=== PATIENT | female | born 1940 | race Caucasian/White ===

== ENCOUNTER 2016-10-23 08:49 | Outpatient (CLI) | payer MEDICARE, OTHER | END 2016-10-23 08:50 | disposition home or self-care (01) | DX: Z12.31 Encounter for screening mammogram for malignant neoplasm of breast (principal) ==

== ENCOUNTER 2016-10-23 15:38 | Outpatient (CLI) | payer MEDICARE, OTHER | END 2016-10-23 15:39 | disposition home or self-care (01) | DX: I10 Essential (primary) hypertension (principal); E78.5 Hyperlipidemia, unspecified ==

== ENCOUNTER 2017-09-17 09:19 | Outpatient (CLI) | payer MEDICARE, OTHER ==
[2017-09-17 17:41] LABS: BASOPHILS # (AUTO) 0.1 10^3/uL (0.0-0.1); BASOPHILS % (AUTO) 0.6 %; EOSINOPHILS # (AUTO) 0.4 10^3/uL (0.0-0.7); EOSINOPHILS % (AUTO) 4.1 %; HGB - HEMOGLOBIN 14.5 g/dL (12.0-16.0); LYMPHOCYTES # (AUTO) 2.3 10^3/uL (1.5-3.5); LYMPHOCYTES % (AUTO) 27.2 %; MEAN CORPUSCULAR HEMOGLOBIN 31.6 pg (27.0-31.0); MEAN CORPUSCULAR HGB CONC 32.7 g/dL (32.0-36.0); MEAN CORPUSCULAR VOLUME 96.4 fL (81.0-99.0); MEAN PLATELET VOLUME 9.1 fL (7.9-10.8); MONOCYTES # (AUTO) 0.9 10^3/uL (0.0-1.0); MONOCYTES % (AUTO) 9.9 %; NEUTROPHILS % (AUTO) 58.2 %; PLT - PLATELET COUNT 225 10^3/uL (130-450); RED BLOOD COUNT 4.61 10^6/uL (4.20-5.40); RED CELL DISTRIBUTION WIDTH 12.9 % (12.0-15.0); WHITE BLOOD COUNT 8.6 x10^3/uL (4.8-10.8)
[2017-09-17 18:25] LABS: ALBUMIN 4.4 g/dL (3.2-5.5); ALBUMIN/GLOBULIN RATIO 1.6 (1.0-2.2); BILIRUBIN,TOTAL 0.6 mg/dL (0.2-1.0); CALCIUM 9.4 mg/dL (8.5-10.3); CREATININE 0.9 mg/dL (0.4-1.0); TOTAL PROTEIN 7.1 g/dL (6.7-8.2)
== END 2017-09-17 09:20 | disposition home or self-care (01) ==
LOC: LAB.F 09:19
PROVIDERS: ATTEND Family Medicine
DX: R10.9 Unspecified abdominal pain (principal); N83.9 Noninflammatory disorder of ovary, fallopian tube and broad ligament, unspecified; Z86.32 Personal history of gestational diabetes; Z12.31 Encounter for screening mammogram for malignant neoplasm of breast; C43.9 Malignant melanoma of skin, unspecified
CPT/HCPCS: 36415; 80053; 85025; 86304

== ENCOUNTER 2017-09-23 11:31 | Outpatient (CLI) | payer MEDICARE, OTHER ==
[2017-09-23] MEDS ORDERED: IOPAMIDOL-300 100 ML VIAL ONE (11:43)
[2017-09-23] MEDS ORDERED: IOPAMIDOL-300 50 ML VIAL ONE (11:43)
[2017-09-23] MEDS ORDERED: IOPAMIDOL-300 50 ML VIAL PO ONE (12:57)
[2017-09-23] MEDS ORDERED: IOPAMIDOL-300 100 ML VIAL IVP ONE (12:57)
--- NOTE | 2017-09-23 14:15 | CT Report ---
DATE OF SERVICE: 09/23/2017 CT OF THE ABDOMEN AND PELVIS WITH AND WITHOUT CONTRAST: 09/23/2017 CLINICAL INDICATION: Ovarian mass. COMPARISON: 09/26/2015. TECHNIQUE: Axial CT images of the abdomen and pelvis were obtained prior to and following 100 mL Isovue 300 intravenously. Oral contrast was also administered. FINDINGS: Limited evaluation of the lung bases is unremarkable. ABDOMEN: On the unenhanced images, the previously noted left renal calculus has resolved. Left cortical scarring and cortical calcifications are stable. No new renal calculus is seen. The liver, spleen, pancreas and adrenal glands are unremarkable. The gallbladder is surgically absent. No bowel dilatation, free gas, or free fluid is present. No abdominal adenopathy is seen. PELVIS: There is a left ovarian cyst, measuring 6.4 x 4.0 cm. A smaller cyst is seen in the right ovary. The uterus appears unremarkable. No pelvic adenopathy or free fluid is appreciated. Osseous structures demonstrate degenerative changes. IMPRESSION: LIKELY LEFT OVARIAN CYST, MEASURING 6.4 CM. SMALLER RIGHT OVARIAN CYST. In accordance with CT protocol optimization, one or more of the following dose reduction techniques were utilized for this exam: automated exposure control, adjustment of mA and/or KV based on patient size, or use of iterative reconstructive technique. TD: 09/23/2017 15:15 SIMON
== END 2017-09-23 11:32 | disposition home or self-care (01) ==
LOC: DI 11:31
PROVIDERS: ATTEND Family Medicine
DX: N83.201 Unspecified ovarian cyst, right side (principal)
CPT/HCPCS: 74178; Q9967

== ENCOUNTER 2018-03-02 08:00 | Outpatient (CLI) | payer MEDICARE, OTHER ==
[2018-03-02 19:13] LABS: BASOPHILS % (AUTO) 1.1 %; EOSINOPHILS % (AUTO) 3.5 %; HGB - HEMOGLOBIN 14.3 g/dL (12.0-16.0); LYMPHOCYTES % (AUTO) 25.9 %; MEAN CORPUSCULAR HEMOGLOBIN 31.9 pg (27.0-31.0); MEAN CORPUSCULAR VOLUME 96.7 fL (81.0-99.0); MEAN PLATELET VOLUME 9.6 fL (7.9-10.8); NEUTROPHILS % (AUTO) 58.5 %; PLT - PLATELET COUNT 208 10^3/uL (130-450); RED BLOOD COUNT 4.48 10^6/uL (4.20-5.40); RED CELL DISTRIBUTION WIDTH 13.3 % (12.0-15.0); WHITE BLOOD COUNT 7.7 x10^3/uL (4.8-10.8)
[2018-03-02 19:19] LABS: ABNORMAL LYMPHS % (MANUAL) 0 %; BAND NEUTROPHILS % (MANUAL) 0 %
[2018-03-02 19:45] LABS: ALBUMIN 3.8 g/dL (3.2-5.5); ALBUMIN/GLOBULIN RATIO 1.2 (1.0-2.2); BILIRUBIN,TOTAL 0.8 mg/dL (0.2-1.0); CALCIUM 9.2 mg/dL (8.5-10.3); CREATININE 0.8 mg/dL (0.4-1.0); TOTAL PROTEIN 6.9 g/dL (6.7-8.2)
[2018-03-02 19:48] LABS: EOSINOPHILS # (MANUAL) 0.2 10^3/uL (0-0.7); LYMPHOCYTES # (MANUAL) 2.6 10^3/uL (1.5-3.5); LYMPHOCYTES % (MANUAL) 34 %; MONOCYTES # (MANUAL) 0.6 10^3/uL (0.0-1.0); NEUTROPHILS # (MANUAL) 4.2 10^3/uL (1.5-6.6); NEUTROPHILS % (MANUAL) 55 %
[2018-03-02 19:49] LABS: DIFFERENTIAL COMMENT MANUAL DIFFERENTIAL; PLATELET ESTIMATE, MANUAL NORMAL (130-450,000) (NORMAL); PLATELET MORPHOLOGY NORMAL APPEARANCE (NORMAL); RBC MORPHOLOGY (MULTIPLE) NORMAL APPEARANCE (NORMAL)
== END 2018-03-02 08:01 | disposition home or self-care (01) ==
LOC: LAB.WCP 08:00
PROVIDERS: ATTEND Family Medicine
DX: R60.0 Localized edema (principal); I10 Essential (primary) hypertension
CPT/HCPCS: 36415; 80053; 84443; 85025

== ENCOUNTER 2018-03-09 08:56 | Outpatient (CLI) | payer MEDICARE, OTHER | END 2018-03-09 08:57 | disposition home or self-care (01) | LOC: DI 08:56 | PROVIDERS: ATTEND Family Medicine | DX: R60.0 Localized edema (principal); I51.7 Cardiomegaly | CPT/HCPCS: 93306 ==

== ENCOUNTER 2018-03-09 08:59 | Outpatient (CLI) | payer MEDICARE, OTHER ==
--- NOTE | 2018-03-10 12:02 | Mammography Report ---
Procedure Date: 03/09/2018 Accession Number: [id number] / [id number] Procedure: HANNY - Screening Mammo Dig Bilat CPT Code: FULL RESULT: EXAM: Screening Mammo Dig Bilat DATE: 03/09/2018 10:01 AM CLINICAL HISTORY: 77-year-old female with a history of continual hormone therapy stopped in 1987 presents for screening. TECHNIQUE: Bilateral CC and MLO views were obtained. COMPARISON: 10/23/2016, 09/26/2015, 09/12/2013, 04/08/2011. FINDINGS: The breasts demonstrate diffuse fatty replacement bilaterally. Typically benign coarse and rodlike calcifications are noted. No suspicious masses, clustered microcalcifications, or regions of architectural distortion are identified. IMPRESSION: Benign findings RECOMMENDATION: Routine annual screening unless otherwise clinically indicated. BIRADS CATEGORY 2: Benign findings STANDARD QUALIFYING STATEMENTS: 1. This examination was reviewed with the aid of Computer-Aided Detection (CAD). 2. A negative or benign imaging report should not delay biopsy if clinically suspicious findings are present. Consider surgical consultation if warrented. More than 5% of cancers are not identified by imaging. 3. Dense breasts may obscure an underlying neoplasm.
== END 2018-03-09 09:00 | disposition home or self-care (01) ==
LOC: DI 08:59
PROVIDERS: ATTEND Family Medicine
DX: Z12.31 Encounter for screening mammogram for malignant neoplasm of breast (principal)
CPT/HCPCS: 77067

== ENCOUNTER 2022-06-23 09:44 | Emergency (ER) | payer MEDICARE, OTHER ==
[2022-06-23 09:53] VITALS: BP 153/79
--- NOTE | 2022-06-23 09:56 | ED Physician Documentation ---
PD HPI BACK PAIN - Stated complaint Stated Complaint: BACK PX - Chief complaint Chief Complaint: Back Pain - History obtained from History obtained from: Patient - History of Present Illness Timing - onset: How many weeks ago (2) Timing - duration: Weeks (2) Timing - details: Abrupt onset, Still present (fell and had pain in left parathoracic area. Some to right. Was slowly improving to mild pain then with abrupt worse again yesterday.) Location: Mid, Right, Left Quality: Pain, Sharp Associated symptoms: No: Fever, Weakness, Numbness Worsened by: Movement, Palpation (parathoracic lower below the scapulae.) Contributing factors: Trauma (she states she slipped and fell backward in bathroom 2 weeks ago. Struck infrascapular area on tile platform edge for the tub. Bruising and pain there but was improving. Abrupt worse yesterday into today without apparent re-injury.) Similar symptoms before: Has not had sx before Recently seen: Not recently seen Review of Systems Constitutional: denies: Fever, Chills Nose: denies: Rhinorrhea / runny nose, Congestion Throat: denies: Sore throat Cardiac: denies: Palpitations, Pedal edema, Calf pain Respiratory: denies: Cough GI: denies: Abdominal Pain Skin: reports: Lesions (bruising that is now purple and yellow in lower thoracic area.) PD PAST MEDICAL HISTORY - Past Medical History Cardiovascular: None Respiratory: None Neuro: None Endocrine/Autoimmune: None - Present Medications Home Medications: Ambulatory Orders Medication Instructions Recorded Confirmed HYDROcod/ACETAM 5/325 [[place] 5/325] 1 ea PO Q6H PRN #18 tablet 06/23/22 Naproxen 250 mg PO BID 10 Days #20 tablet 06/23/22 - Allergies Allergies/Adverse Reactions: Allergies Allergy/AdvReac Type Severity Reaction Status Date / Time No Known Drug Allergies Allergy Verified 06/23/22 09:52 PD ED PE NORMAL - Vitals Vital signs reviewed: Yes - General General: Alert and oriented X 3, Well developed/nourished, Other (appears in pain with back movement and deep breathing. ) - HEENT HEENT: Atraumatic - Neck Neck: Supple, no meningeal sign, No bony TTP, No adenopathy - Respiratory Respiratory: No respiratory distress, Clear bilaterally - Abdomen Abdomen: Soft, Non tender - Back Back: Other (there is tenderness lower thoracic midline and to left, some to lateral right. No bleeding currently. There is purple/yellow bruising left side more. no crepitance. ) - Derm Derm: Normal color, Warm and dry - Neuro Neuro: Alert and oriented X 3, No motor deficit, No sensory deficit, Normal speech Results - Vitals Vitals: Vital Signs - 24 hr 06/23/22 09:49 Temperature 36.3 C L Heart Rate 79 Respiratory 16 Rate Blood Pressure 153/79 H O2 Saturation 96 Oxygen O2 Source Room air - Rads (name of study) chest CT with Radiology: Prelim report reviewed (10th rib fracture right side. No compression fractures. No lung injury.), See rad report PD MEDICAL DECISION MAKING - ED course Complexity details: reviewed results, re-evaluated patient, considered differential, d/w patient Departure - Departure Disposition: 01 Home, Self Care Clinical Impression: Accidental fall Qualifiers: Encounter type: initial encounter Qualified Code(s): W19.XXXA - Unspecified fall, initial encounter Rib fracture Qualifiers: Encounter type: initial encounter Rib fracture type: single rib Fracture type: closed Laterality: right Qualified Code(s): S22.31XA - Fracture of one rib, right side, initial encounter for closed fracture Contusion of thoracic wall Qualifiers: Encounter type: initial encounter Front or back of thoracic wall: back Thoracic wall location detail: left Qualified Code(s): S20.222A - Contusion of left back wall of thorax, initial encounter Condition: Stable Record reviewed to determine appropriate education?: Yes Instructions: ED Fx Rib Prescriptions: Naproxen 250 mg PO BID 10 Days #20 tablet HYDROcod/ACETAM 5/325 [[place] 5/325] 1 ea PO Q6H PRN #18 tablet PRN Reason: Pain Comments: Your CT scan shows a single rib fracture at the 10th rib. Actually see it just to the right even though your pain and bruising is to the left. Therefore the major bruising and tenderness on the left side is not associated with a fracture. He can still be hurting with regard to the bruising. No signs of lung or spine injury or kidney injury in the area on the scan. Activity as tolerated. Use anti-inflammatory such as naproxen twice daily with food for the next 7 to 10 days. To that add Tylenol every 4-6 hours if needed for pain or hydrocodone/acetaminophen if needed for worse pain. I would anticipate this improving better over the next couple more weeks. Follow up if not improving in that timeframe. I transmitted prescriptions to [facility] pharmacy in [place]. My narcotic instructions I am prescribing a short course of narcotic pain medication for you. These are potentially dangerous and addictive medications that should be used carefully. These medications may constipate you. Take an grgg-rla-rzlfusr stool softener such as docusate twice daily with plenty of water while taking these medications. If you go 24 hours without a bowel movement, take putz-cva-klpnazl MiraLAX, per package instructions. Do not drink or drive while taking these medications. If you received narcotic or sedating medications while in the emergency department do not drive for 24 hours. Store this medication in a safe, secure place and out of reach of children. It is a violation of federal law to give or sell this medication to another person or to use in a manner other than prescribed. The ED will not refill narcotic prescriptions, including prescriptions lost or stolen. You can dispose of unwanted medications at the Lead Assistant Manager's office or at several pharmacies such as [facility]. Discharge Date/Time: 06/23/22 13:41
[2022-06-23] MEDS ORDERED: NAPROXEN 250 MG TABLET PO STA (10:13)
[2022-06-23] MEDS ORDERED: HYDROcod/ACETAM 5/325 MG TABLET PO STA (10:13)
--- NOTE | 2022-06-23 11:17 | CT Report ---
PROCEDURE: CHEST WO INDICATIONS: fall with mid thoracic/left scapular back pain TECHNIQUE: Noncontrast 1mm axial images were acquired from the pulmonary apices to the posterior costophrenic an gles. Axial 5 mm soft tissue kernel reconstructions were performed as well as 8 mm axial MIP and cor onal and sagittal 5 mm reformations. For radiation dose reduction, the following was used: automate d exposure control, adjustment of mA and/or kV according to patient size. COMPARISON: CT abdomen pelvis 09/23/2017. FINDINGS: Image quality: Excellent. Lungs and pleura: No acute air space opacities. Mild dependent atelectasis. A few small pulmonary no dules. For example: -Right lower lobe 0.4 cm, (4/199), unchanged since 2018 suggesting a benign etiology. -Right lower lobe 0.2 cm. -Left upper lobe 0.2 cm, (4/140). No pleural effusions or pneumothorax. Central and peripheral airways are patent and normal in calibe r. Mediastinum: Heart size is normal. Mild coronary artery calcifications. No pericardial effusion. N o mediastinal adenopathy by size criteria. Thoracic aorta and central pulmonary arteries are normal in size. Esophagus is normal in caliber. No hiatal hernia. Bones and chest wall: Right lateral 10th rib fracture, (3/61), new in the interval compared to 2018 b ut has a subacute or chronic appearance. No scapula fracture. No suspicious bony lesions. No vertebr al body compression fractures. No axillary or supraclavicular adenopathy by size criteria. The thyr oid is normal in size and there are no incidental findings. Abdomen: No adrenal nodule. 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 Kidneys appear atrophic. There is a rim calcified cyst in the left kidney appears similar to 2018. Postcholecystectomy. IMPRESSION: 1. Right lateral 10th rib fracture. Suspect subacute. 2. No additional fractures seen. 3. No hemothorax or acute airspace opacity. Minimal atelectasis. A few small pulmonary nodules measur ing 0.4 cm, some of which are seen in 2018 and are stable. 4. Findings of chronic calcific pancreatitis. Reviewed by: Jj Peralta MD on 06/23/2022 10:16 AM JAMAL Approved by: Jj Peralta MD on 06/23/2022 10:16 AM JAMAL Station ID: [id number]
== END 2022-06-23 13:41 | disposition home or self-care (01) ==
LOC: ED 09:44
DX: S22.31XA Fracture of one rib, right side, initial encounter for closed fracture (principal); W19.XXXA Unspecified fall, initial encounter; Y92.002 Bathroom of unspecified non-institutional (private) residence as the place of occurrence of the external cause
CPT/HCPCS: 71250; 99284; A9270

== ENCOUNTER 2023-02-25 15:00 | Outpatient (CLI) | payer MEDICARE ==
--- NOTE | 2023-02-25 16:42 | XRAY Report ---
PROCEDURE: Elbow 3 View LT INDICATIONS: CONTUSION OF THE LEFT ELBOW TECHNIQUE: 3 views of the elbow were acquired. COMPARISON: None. FINDINGS: Bones: No fractures or dislocations. No suspicious bony lesions. Soft tissues: No effusion. No suspicious soft tissue calcifications or masses. IMPRESSION: No acute fracture. No osseous lesion. If symptoms and/or clinical suspicion for pathology continue, f urther assessment with repeat plain films, or advanced imaging (e.g., CT, MRI, or bone scan) is recom mended for further assessment. Reviewed by: Arielle Wellington MD on 02/25/2023 4:40 PM PDT Approved by: Arielle Wellington MD on 02/25/2023 4:40 PM PDT Station ID: [id number]
--- NOTE | 2023-02-25 16:45 | XRAY Report ---
PROCEDURE: Wrist 3 View LT INDICATIONS: LEFT WRIST PAIN AFTER FALL, CONTUSION OF LEFT ELBOW TECHNIQUE: 3 views of the wrist were acquired. COMPARISON: None. FINDINGS: Bones: No fractures or dislocations. No suspicious bony lesions. Joint space narrowing in particu lar osteophyte formation at the scaphotrapezial and first metacarpal joints. Soft tissues: No suspicious soft tissue calcifications or masses. IMPRESSION: Osteoarthritis. No acute fracture. No osseous lesion. If symptoms and/or clinical suspicion for patho logy continue, further assessment with repeat plain films, or advanced imaging (e.g., CT, MRI, or bon e scan) is recommended for further assessment. Reviewed by: Arielle Wellington MD on 02/25/2023 4:44 PM PDT Approved by: Arielle Wellington MD on 02/25/2023 4:44 PM PDT Station ID: [id number]
== END 2023-02-25 15:15 | disposition home or self-care (01) ==
LOC: DI.N 15:00
PROVIDERS: ATTEND Physician Assistant Medical
DX: S50.02XA Contusion of left elbow, initial encounter (principal); M19.032 Primary osteoarthritis, left wrist

== ENCOUNTER 2023-09-23 09:09 | Outpatient (CLI) | payer MEDICARE ==
[2023-09-23 09:25] LABS: BASOPHILS # (AUTO) 0.1 10^3/uL (0.0-0.1); EOSINOPHILS # (AUTO) 0.3 10^3/uL (0.0-0.7); EOSINOPHILS % (AUTO) 4.4 %; HCT - HEMATOCRIT 39.9 % (37.0-47.0); HGB - HEMOGLOBIN 13.1 g/dL (12.0-16.0); LYMPHOCYTES % (AUTO) 39.2 %; MEAN CORPUSCULAR HEMOGLOBIN 31.6 pg (27.0-31.0); MEAN CORPUSCULAR HGB CONC 32.8 g/dL (32.0-36.0); MEAN CORPUSCULAR VOLUME 96.1 fL (81.0-99.0); MEAN PLATELET VOLUME 9.7 fL (7.9-10.8); MONOCYTES # (AUTO) 0.8 10^3/uL (0.0-1.0); MONOCYTES % (AUTO) 10.1 %; NEUTROPHILS # (AUTO) 3.5 10^3/uL (1.5-6.6); PLT - PLATELET COUNT 225 10^3/uL (130-450); RED BLOOD COUNT 4.15 10^6/uL (4.20-5.40); RED CELL DISTRIBUTION WIDTH 12.8 % (12.0-15.0); WHITE BLOOD COUNT 7.7 x10^3/uL (4.8-10.8)
[2023-09-23 09:43] LABS: ALBUMIN 3.9 g/dL (3.2-5.5); ALBUMIN/GLOBULIN RATIO 1.6 (1.0-2.2); ALKALINE PHOSPHATASE 50 IU/L (42-121); ALT ALANINE AMINOTRANSFERASE 11 IU/L (10-60); AST ASPARTATE AMINOTRANSFERASE 14 IU/L (10-42); BILIRUBIN,TOTAL 0.7 mg/dL (0.2-1.0); BUN - BLOOD UREA NITROGEN 16 mg/dL (6-20); CARBON DIOXIDE - CO2 30 mmol/L (21-32); CHLORIDE 108 mmol/L (101-111); CHOL/HDL RATIO 3.8 (<4.4); CHOLESTEROL 211 mg/dL; GFR - MDRD 53 (>89); GLUCOSE 101 mg/dL (74-104); HDL CHOLESTEROL 56 mg/dL; LDL CHOLESTEROL,CALCULATED 126 mg/dL; LDL/HDL RATIO 2.3 (<4.4); POTASSIUM 3.8 mmol/L (3.5-4.5); SODIUM 142 mmol/L (135-145); TOTAL PROTEIN 6.4 g/dL (6.4-8.9); TRIGLYCERIDES 143 mg/dL (48-352); VLDL CHOLESTEROL 29 mg/dL
[2023-09-23 09:56] LABS: THYROID STIMULATING HORMONE 2.89 uIU/mL (0.34-5.60)
[2023-09-23 11:38] LABS: ESTIMATED AVERAGE GLUCOSE 111 mg/dL (70-100); HEMOGLOBIN A1c% 5.5 % (4.27-6.07)
== END 2023-09-23 09:10 | disposition home or self-care (01) ==
LOC: LAB 09:09
PROVIDERS: ATTEND Physician Assistant
DX: I10 Essential (primary) hypertension (principal); E78.5 Hyperlipidemia, unspecified; R73.02 Impaired glucose tolerance (oral)
CPT/HCPCS: 36415; 80053; 80061; 83036; 83721; 84443; 85025

== ENCOUNTER 2023-11-17 08:41 | Outpatient (CLI) | payer MEDICARE | END 2023-11-17 23:59 | disposition critical access hospital (66) | LOC: EMS 08:41 | DX: R53.1 Weakness (principal); R29.6 Repeated falls; F03.90 Unspecified dementia, unspecified severity, without behavioral disturbance, psychotic disturbance, mood disturbance, and anxiety | CPT/HCPCS: A0425; A0429 ==

== ENCOUNTER 2023-11-17 09:06 | Emergency (ER) | payer MEDICARE ==
--- NOTE | 2023-11-17 09:12 | ED Physician Documentation ---
PD HPI Fall - Stated complaint Stated Complaint: WEAKNESS/FALLS - History obtained from History obtained from: Patient (poor history due to very poor shot term memory/dementia.), Family, EMS - History of Present Illness Mechanism of injury: Slipped (Report from medics with information from family is patient lives with her . She typically can be up with some assistance. Has been generally weaker for few days. Slumped to the floor during the night and was on the floor for several hours. Brought here for evaluation. Denies injuries.) Fall distance: Standing position Where injury occurred: Home Timing - onset: Last night, Other (spouse and daughters state the patient does have general decline in ambulation and has not wanted to use walker, but spouse states a dramatic decline in strength and ambuation the past 3-4 days. General weakness and unable to get herself up. Typically can walk around house. Fallen several times.) Injury(ies) location: Back (gluteal area.). No: Head, Neck, Chest, Abdomen Quality of pain: No: Pain Associated symptoms: Weakness (generalized and unable to get up and ambulate herself. No noted unilateral weakness per spouse. Pt does not remember events of past few days due to dementia with poor short term recall.). No: LOC, AMS Worsens with: No: Movement, Palpation Contributing factors: No: Anticoagulated Similar symptoms before: Has not had sx before Review of Systems Unable to obtain: Dementia, Other (info from spouse and family. pt able to give symptoms present in the moment.) Constitutional: denies: Fever, Chills Cardiac: denies: Chest pain / pressure GI: denies: Abdominal Pain, Nausea Neurologic: denies: Headache PD PAST MEDICAL HISTORY - Past Medical History Cardiovascular: None Respiratory: None Neuro: Dementia Endocrine/Autoimmune: None - Present Medications Home Medications: Ambulatory Orders Medication Instructions Recorded Confirmed Atorvastatin Calcium 40 mg PO HS 11/17/23 11/17/23 Metoprolol Succinate 100 mg PO DAILY 11/17/23 11/17/23 cephALEXin [Keflex] 500 mg PO TID #20 cap 11/17/23 cloNIDine [Catapres] 0.2 mg PO BID 11/17/23 11/17/23 - Allergies Allergies/Adverse Reactions: Allergies Allergy/AdvReac Type Severity Reaction Status Date / Time No Known Drug Allergies Allergy Verified 11/17/23 12:27 PD ED PE NORMAL - Vitals Vital signs reviewed: Yes - General General: No acute distress, Well developed/nourished. No: Alert and oriented X 3 (just to person, but is alert and attentive, smiles to my smile. ) - HEENT HEENT: Atraumatic - Neck Neck: Supple, no meningeal sign, No bony TTP - Cardiac Cardiac: No murmur. No: RRR (regular initially and at times on monitor has flutter waves but still rate controlled under 110, mostly 80-90s, then back to NSR in minute or two. ) - Respiratory Respiratory: No respiratory distress, Clear bilaterally - Abdomen Abdomen: Soft, Non tender, Non distended - Back Back: No CVA TTP, No spinal TTP - Derm Derm: Normal color, Warm and dry - Extremities Extremities: Normal ROM s pain, No edema, No calf tenderness / cord Results - Vitals Vitals: Vital Signs - 24 hr 11/17/23 11/17/23 11/17/23 09:05 09:58 11:35 Temperature 36.3 C L Heart Rate 109 H 100 95 Respiratory 25 H 28 H 15 Rate Blood Pressure 165/87 H 150/88 H 153/90 H O2 Saturation 97 98 98 11/17/23 11/17/23 11/17/23 12:07 12:19 14:00 Temperature 36.2 C L Heart Rate 96 78 84 Respiratory 20 18 17 Rate Blood Pressure 162/99 H 146/69 H 127/68 O2 Saturation 96 98 100 11/17/23 11/17/23 11/17/23 16:00 18:38 19:18 Temperature 36.6 C Heart Rate 80 98 92 Respiratory 20 21 25 H Rate Blood Pressure 157/73 H 157/70 H 157/70 H O2 Saturation 95 97 96 Oxygen O2 Source Room air - EKG (time done) 10:13 EKG releavant findings:: EKG personally interpreted by author of this note. Relevant findings are: Rate: Rate (enter#) (94) Rhythm: NSR [place]: Normal Intervals: Normal IN QRS: Normal Ischemia: Normal ST segments. No: ST elevation c/w ischemia, ST depression 10:15 EKG releavant findings:: EKG personally interpreted by author of this note. Relevant findings are: Rhythm: Atrial flutter Ischemia: Normal ST segments. No: ST elevation c/w ischemia, ST depression - Labs Labs: Laboratory Tests 11/17/23 11/17/23 11/17/23 09:19 09:19 09:47 WBC 10.7 RBC 4.62 Hgb 14.4 Hct 43.5 MCV 94.2 MCH 31.2 H MCHC 33.1 RDW 12.7 Plt Count 266 MPV 10.1 Neut # (Auto) 7.6 H Lymph # (Auto) 1.6 [place] # (Auto) 1.3 H Eos # (Auto) 0.1 Baso # (Auto) 0.1 Absolute Nucleated RBC 0.00 Nucleated RBC % 0.0 Sodium 138 Potassium 4.0 Chloride 103 Carbon Dioxide 28 Anion Gap 7.0 BUN 21 H Creatinine 1.1 Estimated GFR (MDRD) 47 L Glucose 129 H Calcium 10.3 Magnesium 1.5 L Total Bilirubin 0.9 AST 17 ALT 12 Alkaline Phosphatase 53 Total Creatine Kinase 272 H Total Protein 6.8 Albumin 4.0 Globulin 2.8 Albumin/Globulin Ratio 1.4 Lipase 14 Urine Color YELLOW Urine Clarity HAZY Urine pH 5.5 Ur Specific [place] >=1.030 H Urine Protein TRACE Urine Glucose (UA) NEGATIVE Urine Ketones 15 H Urine Occult Blood TRACE-INTA Urine Nitrite POSITIVE H Urine Bilirubin NEGATIVE Urine Urobilinogen 0.2 (NORMAL) Ur Leukocyte Esterase TRACE H Urine RBC 6-10 H Urine WBC 11-25 H Ur Squamous Epith Cells RARE Squamous Urine Bacteria Moderate H Ur Microscopic Review INDICATED Urine Culture Comments INDICATED Nasal Adenovirus (PCR) Nasal B. parapertussis DNA (PCR) Nasal Coronavir 229E PCR Nasal Coronavir HKU1 PCR Nasal Coronavir NL63 PCR Nasal Coronavir OC43 PCR Nasal Enterovir/Rhinovir PCR Nasal Influenza B PCR Nasal Influenza A PCR Nasal Parainfluen 1 PCR Nasal Parainfluen 2 PCR Nasal Parainfluen 3 PCR Nasal Parainfluen 4 PCR Nasal RSV (PCR) Nasal B.pertussis DNA PCR Nasal C.pneumoniae (PCR) [place]skar Human Metapneumo PCR Nasal M.pneumoniae (PCR) Nasal SARS-CoV-2 (PCR) 11/17/23 09:50 WBC RBC Hgb Hct MCV MCH MCHC RDW Plt Count MPV Neut # (Auto) Lymph # (Auto) [place] # (Auto) Eos # (Auto) Baso # (Auto) Absolute Nucleated RBC Nucleated RBC % Sodium Potassium Chloride Carbon Dioxide Anion Gap BUN Creatinine Estimated GFR (MDRD) Glucose Calcium Magnesium Total Bilirubin AST ALT Alkaline Phosphatase Total Creatine Kinase Total Protein Albumin Globulin Albumin/Globulin Ratio Lipase Urine Color Urine Clarity Urine pH Ur Specific [place] Urine Protein Urine Glucose (UA) Urine Ketones Urine Occult Blood Urine Nitrite Urine Bilirubin Urine Urobilinogen Ur Leukocyte Esterase Urine RBC Urine WBC Ur Squamous Epith Cells Urine Bacteria Ur Microscopic Review Urine Culture Comments Nasal Adenovirus (PCR) NOT DETECTED Nasal B. parapertussis DNA (PCR) NOT DETECTED Nasal Coronavir 229E PCR NOT DETECTED Nasal Coronavir HKU1 PCR NOT DETECTED Nasal Coronavir NL63 PCR NOT DETECTED Nasal Coronavir OC43 PCR NOT DETECTED Nasal Enterovir/Rhinovir PCR NOT DETECTED Nasal Influenza B PCR NOT DETECTED Nasal Influenza A PCR NOT DETECTED Nasal Parainfluen 1 PCR NOT DETECTED Nasal Parainfluen 2 PCR NOT DETECTED Nasal Parainfluen 3 PCR NOT DETECTED Nasal Parainfluen 4 PCR NOT DETECTED Nasal RSV (PCR) NOT DETECTED Nasal B.pertussis DNA PCR NOT DETECTED Nasal C.pneumoniae (PCR) NOT DETECTED Oskar Human Metapneumo PCR NOT DETECTED Nasal M.pneumoniae (PCR) NOT DETECTED Nasal SARS-CoV-2 (PCR) NOT DETECTED - Rads (name of study) chest xray Relevant Findings:: Prelim report reviewed, EMP independent interpretation of test (no infiltrates nor acute findings. ) head CT Relevant Findings:: Prelim report reviewed (no acute process. ) PD Medical Decision Making - ED course Complexity details: reviewed results, considered differential (general weakness. Can check labs and yumiko at sugar, lytes, CBC, and for infections with viral testing, UA, CXR. No focal findings on exam initially. Had slump to floor last night but no headache/impact. Subsequently considered head CT though. ), d/w patient, d/w family (spouse and caughters.) Reviewed Lab Results: UA showing a certain UTI with nitrates, WBCs, leuks, bacteria. Will be cultured. CXR clear. Having intermittent atrial flutter to NSR, but no chest pain nor dyspnea. Rate is controlled. Unclear how long this may have been happening. Consider faster rate episodes at times that could lead to her falling episodes, though describes them as just balance and general weakness and not syncope. Notable decline in strength and nonambulatory for just 3-4 days suggests acute process/illness. Lytes are good. Not anemic. Glucose adequate. Does have UTI, which I would be inclined to think is contributing in this case. Given IV fluids and Rocephin for it. I felt UTI with weakness acutely and falls might be admission criteria and talked with Hospitalist. But he felt the patient did not meet criteria. Raised idea of head CT and family concurred, so did this and prolonged wait of couple hours for CT report that did not show acute process. Does not exclude new small stroke but is not having unilateral symptoms. Hospitalist did talk with pt and family. He conveyed his opinion of not meeting admission criteria. Family agreeable in therefore trying to take her home and see i improves over next few days. Wheelchaired out by nursing. Departure - Departure Disposition: Home, Self Care Clinical Impression: UTI (urinary tract infection), General weakness, Multiple falls, Intermittent atrial flutter, Dementia Condition: Stable Record reviewed to determine appropriate education?: Yes Instructions: ED Paroxysmal Atrial Flutter, ED UTI Cystitis Female Follow-Up: Germania Martinez PA [Primary Care Provider] - Prescriptions: cephALEXin [Keflex] 500 mg PO TID #20 cap Comments: Stay well-hydrated. Continue usual medications. Cephalexin antibiotic 3 times daily for the next week for the urinary tract infection. Hopefully your general weakness will improve over the next couple of days. On your heart monitor you have had brief episodes of an irregular heartbeat called atrial fibrillation/flutter which then goes back to normal. The rate of it is controlled. I would just continue with your current dose of metoprolol at this time. This can happen as irritation of the electrical system related to illness etc. I would suggest aspirin adding a baby aspirin daily. You do have a urinary tract infection and we provided antibiotic for that. We did a CT scan of your head and there was no signs of swelling bleeding tumors or obvious stroke at this time. Your other basic blood test did not show any notable abnormalities. I did talk with our hospitalist to felt that you did not meet hospital admission criteria at this time. Return to the ER if you not improving well over the next few days or generally worsening. I sent your prescription to your preferred pharmacy. Forms: PCP List Discharge Date/Time: 11/17/23 19:20
[2023-11-17 09:24] LABS: BASOPHILS # (AUTO) 0.1 10^3/uL (0.0-0.1); BASOPHILS % (AUTO) 0.6 %; EOSINOPHILS # (AUTO) 0.1 10^3/uL (0.0-0.7); EOSINOPHILS % (AUTO) 1.3 %; HCT - HEMATOCRIT 43.5 % (37.0-47.0); HGB - HEMOGLOBIN 14.4 g/dL (12.0-16.0); LYMPHOCYTES # (AUTO) 1.6 10^3/uL (1.5-3.5); LYMPHOCYTES % (AUTO) 14.6 %; MEAN CORPUSCULAR HEMOGLOBIN 31.2 pg (27.0-31.0); MEAN CORPUSCULAR HGB CONC 33.1 g/dL (32.0-36.0); MEAN CORPUSCULAR VOLUME 94.2 fL (81.0-99.0); MEAN PLATELET VOLUME 10.1 fL (7.9-10.8); MONOCYTES # (AUTO) 1.3 10^3/uL (0.0-1.0); NEUTROPHILS # (AUTO) 7.6 10^3/uL (1.5-6.6); NEUTROPHILS % (AUTO) 71.2 %; PLT - PLATELET COUNT 266 10^3/uL (130-450); RED BLOOD COUNT 4.62 10^6/uL (4.20-5.40); RED CELL DISTRIBUTION WIDTH 12.7 % (12.0-15.0); WHITE BLOOD COUNT 10.7 x10^3/uL (4.8-10.8)
--- NOTE | 2023-11-17 09:27 | XRAY Report ---
PROCEDURE: Chest 1V INDICATIONS: weakness TECHNIQUE: One view of the chest was acquired. COMPARISON: None. FINDINGS: Surgical changes and devices: None. Lungs and pleura: No pleural effusions or pneumothorax. Lungs are clear. Mediastinum: Mediastinal contours appear normal. Heart size is normal. Bones and chest wall: No suspicious bony lesions. Overlying soft tissues appear unremarkable. IMPRESSION: No acute cardiopulmonary process. Reviewed by: Sanaz Parker MD on 11/17/2023 9:25 AM PDT Approved by: Sanaz Parker MD on 11/17/2023 9:25 AM PDT Station ID: [id number]
[2023-11-17] MEDS: SODIUM CHLORIDE 0.9% 1,000 ML IV STA (09:32)
[2023-11-17 09:38] LABS: ALBUMIN/GLOBULIN RATIO 1.4 (1.0-2.2); BILIRUBIN,TOTAL 0.9 mg/dL (0.2-1.0); CALCIUM 10.3 mg/dL (8.5-10.3); CREATININE 1.1 mg/dL (0.6-1.3); MAGNESIUM 1.5 mg/dL (1.7-2.3); TOTAL PROTEIN 6.8 g/dL (6.4-8.9)
[2023-11-17 09:54] LABS: BILIRUBIN,URINE NEGATIVE (NEGATIVE); GLUCOSE, URINE (UA) NEGATIVE (NEGATIVE); KETONES,URINE (UA) 15 mg/dL (NEGATIVE); LEUKOCYTE ESTERASE, URINE TRACE (NEGATIVE); NITRITE,URINE POSITIVE (NEGATIVE); OCCULT BLOOD,URINE TRACE-INTA (NEGATIVE); PH,URINE 5.5 PH (5.0-7.5); PROTEIN,URINE TRACE mg/dL (NEGATIVE); UROBILINOGEN,URINE 0.2 (NORMAL) E.U./dL (NORMAL)
[2023-11-17 09:56] LABS: CLARITY,URINE HAZY (CLEAR)
[2023-11-17 10:08] LABS: SQUAMOUS EPITHELIAL CELL,UR RARE Squamous (<= Few)
[2023-11-17 10:09] LABS: BACTERIA,URINE Moderate /HPF (None Seen)
[2023-11-17] MEDS: cefTRIAXone 1 GM VIAL IVP STA (10:24)
[2023-11-17] MEDS: MAGNESIUM SULFATE 2 GRAM 2 GM/50 ML BAG IV ONE (10:30)
[2023-11-17 10:48] LABS: B. PARAPERTUSSIS- RESP PCR PAN NOT DETECTED; B. PERTUSSIS- RESP PCR PANEL NOT DETECTED; C. PNEUMONIAE- RESP PCR PANEL NOT DETECTED; CORONAVIRUS 229E-RESP PCR NOT DETECTED; CORONAVIRUS HKU1-RESP PCR NOT DETECTED; CORONAVIRUS NL63-RESP PCR NOT DETECTED; CORONAVIRUS OC43-RESP PCR NOT DETECTED; HUMAN METAPNEUMOVIRUS NOT DETECTED; INFLUENZA A- RESP PCR PANEL NOT DETECTED; INFLUENZA B - RESP PCR PANEL NOT DETECTED; M. PNEUMONIAE- RESP PCR PANEL NOT DETECTED; PARAINFLUENZA VIRUS 1 NOT DETECTED; PARAINFLUENZA VIRUS 2 NOT DETECTED; PARAINFLUENZA VIRUS 3 NOT DETECTED; PARAINFLUENZA VIRUS 4 NOT DETECTED; RHINOVIRUS/ENTEROVIRUS NOT DETECTED; RSV- RESP PCR PANEL NOT DETECTED; SARS-CoV-2 -RESP PCR PANEL NOT DETECTED
[2023-11-17] MEDS: METOPROLOL 5 MG/5 ML VIAL IVP STA (12:11)
--- NOTE | 2023-11-17 13:18 | PHARMACY PROGRESS NOTE ---
- Best Possible Medication History Admit Date and Time: Processed by: Pharmacy Medications reviewed in ED?: Yes Medication History completed: Yes Patient Interview: Completed Secondary Source(s): Insurance records As the person ultimately responsible for medication therapy, providers are able to order a medication from an existing home medication list in [facility] via the "Reconcile Routine" prior to Confirmation of that medication by applications support engineer. Such practice is discouraged except when the physician, in their clinical judgment, deems that a medical need exists for a medication without regard to previous use.
[2023-11-17] MEDS ORDERED: PROTHROMBIN COMPLEX 500 UNIT ONE (16:23)
--- NOTE | 2023-11-17 18:32 | CT Report ---
PROCEDURE: Head WO INDICATIONS: fall this morning; confused over baseline TECHNIQUE: Noncontrast 4.5 mm thick angled axial sections acquired from the foramen magnum to the vertex. For r adiation dose reduction, the following was used: automated exposure control, adjustment of mA and/or kV according to patient size. COMPARISON: None. FINDINGS: Image quality: Excellent. CSF spaces: Basal cisterns are patent. No extra-axial fluid collections. Ventricles are normal in size and shape. Brain: No midline shift. No intracranial masses or hemorrhage. Young-white matter interface is norm al. Skull and face: Calvarium and visualized facial bones are intact, without suspicious lesions. Sinuses: Visualized sinuses and mastoids are clear. IMPRESSION: No acute intracranial pathology. Reviewed by: Modesta Funk MD, PhD on 11/17/2023 6:31 PM PDT Approved by: Modesta Funk MD, PhD on 11/17/2023 6:31 PM PDT Station ID: [id number]
[2023-11-17] MEDS: cephALEXin 250 MG CAPSULE PO STA (18:34)
[2023-11-17] MEDS: METOPROLOL TARTRATE 50 MG TABLET PO STA (18:35)
[2023-11-17 18:47] VITALS: BP 157/70
[2023-11-17 19:25] VITALS: O2SAT 96
== END 2023-11-17 19:20 | disposition home or self-care (01) ==
LOC: EDUNIT# → ED 09:06
DX: I48.92 Unspecified atrial flutter (principal); R53.1 Weakness; F03.90 Unspecified dementia, unspecified severity, without behavioral disturbance, psychotic disturbance, mood disturbance, and anxiety; N39.0 Urinary tract infection, site not specified; Z91.81 History of falling
CPT/HCPCS: 36415; 51701; 70450; 71045; 80053; 81001; 82550; 83690; 83735; 85025; 87086; 87633; 93005; 96365; 96366; 96375; 99284; A9270; 81003; 87181

== ENCOUNTER 2024-04-04 08:00 | Outpatient (CLI) | payer MEDICARE ==
[2024-04-05 00:20] LABS: BACTERIAL VAGINOSIS DNA NEGATIVE (NEGATIVE); CANDIDA GLABRATA DNA NEGATIVE (NEGATIVE); CANDIDA GROUP DNA POSITIVE (NEGATIVE); CANDIDA KRUSEI DNA NEGATIVE (NEGATIVE); TRICHOMONAS VAGINALIS DNA NEGATIVE (NEGATIVE)
== END 2024-04-04 23:59 | disposition home or self-care (01) ==
LOC: LAB.N 08:00
PROVIDERS: ATTEND Physician Assistant
DX: R30.0 Dysuria (principal)
CPT/HCPCS: 81514; 87086; 87181; 87661; 87801